=== PATIENT | female | born 1985 | race Caucasian/White ===

== ENCOUNTER 2021-07-12 14:32 | Inpatient (IN) | payer SELFPAY ==
[2021-07-12] MEDS ORDERED: Iopamidol-370 76% 500 ML 1 ML ONE (15:06)
[2021-07-12 15:58] LABS: #Eosinphils 0.5 thou/uL (0.0-0.7); #Lymphocytes 1.7 thou/uL (1.20-3.40); #Monocytes 0.8 thou/uL (0.11-0.59); #Neutrophils 10.9 thou/uL (1.40-6.50); %Basophils 0.3 % (0.0-1.0); %Eosinophils 3.3 % (0.0-10.0); %Lymphocytes 12.1 % (21.0-51.0); %Neutrophils 78.4 % (42.0-75.0); Hemoglobin 13.5 g/dL (12.0-16.0); Mean Corpuscular HGB CONC 34.3 g/dL (32.0-36.0); Mean Corpuscular Hemoglobin 29.3 pg (27.0-31.0); Mean Corpuscular Volume 85.5 fL (78.0-98.0); Mean Platelet Volume 7.2 fL (7.4-10.4); Platelet Count 385 thou/uL (130-400); RBC Distribution Width 12.4 % (11.5-14.5); Red Blood Cell (RBC) Count 4.59 mill/uL (4.20-5.40); White Blood Cell (WBC) Count 13.9 thou/uL (4.8-10.8)
[2021-07-12 16:17] LABS: ALT (SGPT) 12 U/L (8-55); AST (SGOT) 11 U/L (5-34); Albumin 4.3 g/dL (3.5-5.0); Alkaline Phosphatase 106 U/L (40-110); Anion Gap 12 mmol/L (10-20); BUN (Urea Nitrogen) 5 mg/dL (7.0-18.7); Bilirubin, Total 1.1 mg/dL (0.2-1.2); Calc. Creatinine Clearance 0 mL/min (70-130); Calcium 9.3 mg/dL (7.8-10.44); Carbon Dioxide 26 mmol/L (22-29); Chloride 104 mmol/L (98-107); Globulin 3.3 g/dL (2.4-3.5); Glucose 93 mg/dL (70-105); Potassium 3.9 mmol/L (3.5-5.1); Protein, Total 7.6 g/dL (6.0-8.3); Sodium 138 mmol/L (136-145)
[2021-07-12 16:38] LABS: Bilirubin Negative (Negative); Blood, Urine Negative (Negative); Clarity Clear (Clear); Glucose, Urine (Dipstick) Normal (Negative); Ketone, Urine 60 mg/dL (Negative); Leukocyte Negative Leu/uL (Negative); Nitrite Negative (Negative); Protein, Urine (Dipstick) Negative (Neg-Trace); Specific Gravity, Urine 1.017 (1.002-1.036)
[2021-07-12 16:41] LABS: Pregnancy Test - Urine (BHCG) Negative (Negative); Pregu Control Background? CLEAR/WHITE (CLR/WHITE); Pregu Control Bar Appear? YES (CONTROL BAR); Specific Gravity 1.017 (1.002-1.036)
[2021-07-12] MEDS ORDERED: Ondansetron PF 4 MG/2 ML Vial ONE ×2 (17:34→20:40)
[2021-07-12] MEDS ORDERED: Ketorolac Tromethamine 30 MG/ML VIAL ONE ×2 (18:40→23:05)
[2021-07-12] MEDS ORDERED: Bupivacaine 0.25% HCL 30 ML VIAL ONE (19:40)
[2021-07-12] MEDS ORDERED: Lidocaine 1% w/Epinephrine 1:100K 20 ML VIAL ONE (19:40)
[2021-07-12] MEDS ORDERED: Piperacillin/Tazobactam 3.375 GM VIAL ONE (19:55)
[2021-07-12 20:09] LABS: SARS-CoV-2 NAA Rapid Test Not Detected (NotDetected)
[2021-07-12] MEDS ORDERED: Fentanyl 100 MCG/2 ML VIAL ONE ×2 (20:15→22:35)
[2021-07-12] MEDS ORDERED: Dexamethasone 20 MG/5 ML VIAL ONE (20:40)
[2021-07-12] MEDS ORDERED: PROPOFOL 200 MG/20 ML VIAL ONE (20:40)
[2021-07-12] MEDS ORDERED: Succinylcholine 200 MG/10 ml SYRINGE FS ONE (20:40)
[2021-07-12] MEDS ORDERED: Lidocaine 1% PF 5 ML VIAL ONE (20:40)
[2021-07-12] MEDS ORDERED: PHENYLEPHRINE-NS 100 MCG/ML 10 ML SYRINGE ONE (20:40)
[2021-07-12] MEDS ORDERED: Glycopyrrolate 0.2 MG/ML 5 ML SYRINGE ONE (20:40)
[2021-07-12] MEDS ORDERED: Rocuronium Bromide 10 MG/ML (10ML VIAL) ONE (20:40)
[2021-07-12] MEDS ORDERED: Scopolamine 1.5 mg/72 hour Patch ONE (22:32)
[2021-07-12] MEDS ORDERED: Promethazine HCl 25 MG/ML VIAL IVPB PRN (22:34)
[2021-07-12] MEDS ORDERED: Promethazine HCl 25 MG/ML VIAL IM PRN ×2 (22:34→23:03)
[2021-07-12] MEDS ORDERED: Ondansetron HCl/PF 4 MG/2 ML Vial IVP PRN (22:34)
[2021-07-12] MEDS ORDERED: HYDROmorphone 2 MG/ML VIAL SLOW IVP PRN (22:34)
[2021-07-12] MEDS ORDERED: Ketorolac Tromethamine 30 MG/ML VIAL IVP PRN (22:34)
[2021-07-12] MEDS ORDERED: Dextrose 5% in Water 1,000 ML IV PRN (23:03)
[2021-07-12] MEDS ORDERED: hydrALAZINE 20 MG/ML VIAL SLOW IVP PRN (23:03)
[2021-07-12] MEDS ORDERED: Ondansetron PF 4 MG/2 ML Vial IVP PRN (23:03)
[2021-07-12] MEDS ORDERED: Acetaminophen 325 MG TAB PO PRN (23:03)
[2021-07-12] MEDS ORDERED: Dextrose 50% Abboject 50 ML SYRINGE SLOW IVP PRN (23:03)
[2021-07-12] MEDS ORDERED: Morphine 4 MG/ML VIAL SLOW IVP PRN ×2 (23:03→23:30)
[2021-07-12] MEDS ORDERED: Morphine 2 MG/ML VIAL SLOW IVP PRN (23:03)
[2021-07-12] MEDS ORDERED: HYDROcodone/Acetaminophen 10/325 mg Tablet PO PRN ×2 (23:03)
[2021-07-12] MEDS ORDERED: Acetaminophen 650 MG Suppository PR PRN (23:03)
[2021-07-12] MEDS: Ketorolac Tromethamine 30 MG/ML VIAL IVP SCH (23:10)
[2021-07-12] MEDS: D5 1/2 NS w/20 mEq KCL 1,000 ML IV SCH (23:31)
[2021-07-12] MEDS ORDERED: D5 1/2 NS w/20 mEq KCL 1,000 ML ONE (23:31)
[2021-07-12] MEDS ORDERED: Piperacillin/Tazobactam 3.375 GM in Sodium Chloride 0.9% 100 ML IVPB SCH (23:59)
[2021-07-13 00:16] VITALS: BMI 41.1
[2021-07-13] MEDS: Piperacillin/Tazobactam 3.375 GM in Sodium Chloride 0.9% 100 ML IVPB SCH ×4 (00:38→23:59)
[2021-07-13] MEDS: Ketorolac Tromethamine 30 MG/ML VIAL IVP SCH ×4 (05:20→23:59)
[2021-07-13 06:07] LABS: #Lymphocytes 0.7 thou/uL (1.20-3.40); #Monocytes 0.2 thou/uL (0.11-0.59); #Neutrophils 10.5 thou/uL (1.40-6.50); %Eosinophils 0.1 % (0.0-10.0); %Lymphocytes 6.1 % (21.0-51.0); %Monocytes 2.1 % (0.0-10.0); %Neutrophils 91.7 % (42.0-75.0); Hemoglobin 12.7 g/dL (12.0-16.0); Mean Corpuscular HGB CONC 33.9 g/dL (32.0-36.0); Mean Corpuscular Hemoglobin 28.9 pg (27.0-31.0); Mean Corpuscular Volume 85.3 fL (78.0-98.0); Mean Platelet Volume 7.6 fL (7.4-10.4); Platelet Count 378 thou/uL (130-400); RBC Distribution Width 12.3 % (11.5-14.5); Red Blood Cell (RBC) Count 4.39 mill/uL (4.20-5.40); White Blood Cell (WBC) Count 11.5 thou/uL (4.8-10.8)
[2021-07-13 06:22] LABS: Anion Gap 14 mmol/L (10-20); BUN (Urea Nitrogen) 6 mg/dL (7.0-18.7); Calc. Creatinine Clearance 176 mL/min (70-130); Calcium 9.1 mg/dL (7.8-10.44); Carbon Dioxide 22 mmol/L (22-29); Chloride 104 mmol/L (98-107); Glucose 177 mg/dL (70-105); Potassium 4.1 mmol/L (3.5-5.1); Sodium 136 mmol/L (136-145)
[2021-07-13] MEDS: Famotidine/PF 20 mg/2ml Vial SLOW IVP SCH ×2 (08:53→20:41)
[2021-07-13] MEDS: D5 1/2 NS w/20 mEq KCL 1,000 ML IV SCH ×3 (08:58→20:54)
[2021-07-13] MEDS: Famotidine 20 MG TAB PO SCH ×2 (09:23→20:40)
[2021-07-13] MEDS: Enoxaparin Sodium 40 MG/0.4 ML SYRINGE SC SCH (11:26)
[2021-07-14] MEDS: D5 1/2 NS w/20 mEq KCL 1,000 ML IV SCH ×2 (03:53→13:56)
[2021-07-14] MEDS: Ketorolac Tromethamine 30 MG/ML VIAL IVP SCH (05:30)
[2021-07-14 06:26] LABS: #Basophils 0.1 thou/uL (0.0-0.2); #Eosinphils 0.4 thou/uL (0.0-0.7); #Lymphocytes 2.4 thou/uL (1.20-3.40); #Monocytes 0.9 thou/uL (0.11-0.59); #Neutrophils 5.8 thou/uL (1.40-6.50); %Basophils 0.5 % (0.0-1.0); %Eosinophils 4.7 % (0.0-10.0); %Lymphocytes 25.1 % (21.0-51.0); %Monocytes 9.1 % (0.0-10.0); %Neutrophils 60.6 % (42.0-75.0); Hemoglobin 11.5 g/dL (12.0-16.0); Mean Corpuscular Hemoglobin 30.2 pg (27.0-31.0); Mean Corpuscular Volume 86.2 fL (78.0-98.0); Mean Platelet Volume 7.4 fL (7.4-10.4); Platelet Count 347 thou/uL (130-400); RBC Distribution Width 12.4 % (11.5-14.5); Red Blood Cell (RBC) Count 3.83 mill/uL (4.20-5.40); White Blood Cell (WBC) Count 9.5 thou/uL (4.8-10.8)
[2021-07-14 06:49] LABS: Anion Gap 12 mmol/L (10-20); BUN (Urea Nitrogen) 7 mg/dL (7.0-18.7); Calc. Creatinine Clearance 176 mL/min (70-130); Calcium 8.7 mg/dL (7.8-10.44); Carbon Dioxide 23 mmol/L (22-29); Chloride 106 mmol/L (98-107); Glucose 110 mg/dL (70-105); Potassium 3.7 mmol/L (3.5-5.1); Sodium 137 mmol/L (136-145)
[2021-07-14] MEDS: Famotidine/PF 20 mg/2ml Vial SLOW IVP SCH ×2 (08:36→20:22)
[2021-07-14] MEDS: Enoxaparin Sodium 40 MG/0.4 ML SYRINGE SC SCH (08:37)
[2021-07-14] MEDS: Piperacillin/Tazobactam 3.375 GM in Sodium Chloride 0.9% 100 ML IVPB SCH ×2 (08:37→16:25)
[2021-07-14] MEDS: Famotidine 20 MG TAB PO SCH ×2 (08:41→20:22)
[2021-07-14] MEDS ORDERED: Ibuprofen 800 MG TAB PO PRN (10:14)
[2021-07-14] MEDS ORDERED: HYDROcodone/Acetaminophen 5/325 mg Tablet PO PRN ×2 (10:15)
[2021-07-14] MEDS ORDERED: Ketorolac Tromethamine 30 MG/ML VIAL IVP PRN (10:16)
[2021-07-14] MEDS ORDERED: Ibuprofen 200 MG TAB PO PRN (10:58)
[2021-07-15] MEDS: Piperacillin/Tazobactam 3.375 GM in Sodium Chloride 0.9% 100 ML IVPB SCH (00:40)
[2021-07-15] MEDS: D5 1/2 NS w/20 mEq KCL 1,000 ML IV SCH ×2 (01:37→06:10)
[2021-07-15 06:07] LABS: #Eosinphils 0.6 thou/uL (0.0-0.7); #Lymphocytes 2.1 thou/uL (1.20-3.40); #Monocytes 0.7 thou/uL (0.11-0.59); #Neutrophils 4.2 thou/uL (1.40-6.50); %Basophils 0.5 % (0.0-1.0); %Eosinophils 8.3 % (0.0-10.0); %Lymphocytes 27.3 % (21.0-51.0); %Monocytes 8.9 % (0.0-10.0); Mean Corpuscular HGB CONC 31.9 g/dL (32.0-36.0); Mean Corpuscular Hemoglobin 27.7 pg (27.0-31.0); Mean Corpuscular Volume 86.8 fL (78.0-98.0); Mean Platelet Volume 7.4 fL (7.4-10.4); Platelet Count 364 thou/uL (130-400); RBC Distribution Width 12.4 % (11.5-14.5); Red Blood Cell (RBC) Count 3.98 mill/uL (4.20-5.40); White Blood Cell (WBC) Count 7.6 thou/uL (4.8-10.8)
[2021-07-15] MEDS: Famotidine 20 MG TAB PO SCH (08:35)
[2021-07-15] MEDS: Famotidine/PF 20 mg/2ml Vial SLOW IVP SCH (08:36)
[2021-07-15] MEDS: Enoxaparin Sodium 40 MG/0.4 ML SYRINGE SC SCH (08:36)
[2021-07-15] MEDS ORDERED: traMADol HCl 50 MG TAB PO PRN (08:50)
[2021-07-15 08:54] VITALS: BP 134/89; TEMP 98.7
[2021-07-15] MEDS ORDERED: metroNIDAZOLE 500 MG TAB PO SCH (09:00)
[2021-07-16] MEDS ORDERED: FLU VACC QS2021-22(6MOS UP)/PF 60 MCG/0.5 ML SYRINGE IM ONE (09:00)
== END 2021-07-15 11:21 | disposition home or self-care (01) | DRG 357 ==
LOC: ERS 14:32 → SDC/OP 18:55 → SJJU 23:03
PROVIDERS: ADMIT Surgery; ATTEND Surgery
PROC: 0W9J4ZZ Drainage of Pelvic Cavity, Percutaneous Endoscopic Approach (ICD-10-PCS; principal; 2021-07-12)
DX: K35.33 Acute appendicitis with perforation, localized peritonitis, and gangrene, with abscess (principal); Z68.41 Body mass index [BMI] 40.0-44.9, adult; Z20.822 Contact with and (suspected) exposure to COVID-19; E66.01 Morbid (severe) obesity due to excess calories; Z90.49 Acquired absence of other specified parts of digestive tract; Z88.8 Allergy status to other drugs, medicaments and biological substances
CPT/HCPCS: 36415; 74177; 80048; 80053; 81003; 81025; 85025; 87324; 87449; 96361; 96365; 96375; J1100; J1885; J2270; J2405; J2543; J2704; J3010; J3480; J3490; Q9967; S0020; S0028; U0002

== ENCOUNTER 2022-06-21 18:17 | Inpatient (IN) | payer OTHER, SELFPAY ==
[~2022-06-21 18:17] MED LIST: Iopamidol-370 76% 500 ML 1 ML ONE
[2022-06-21 19:04] LABS: #Eosinphils 0.5 thou/uL (0.0-0.7); #Lymphocytes 1.1 thou/uL (1.20-3.40); #Monocytes 0.6 thou/uL (0.11-0.59); #Neutrophils 9.5 thou/uL (1.40-6.50); %Basophils 0.1 % (0.0-1.0); %Eosinophils 4.3 % (0.0-10.0); %Lymphocytes 9.3 % (21.0-51.0); %Monocytes 5.4 % (0.0-10.0); Hemoglobin 13.3 g/dL (12.0-16.0); Mean Corpuscular HGB CONC 34.4 g/dL (32.0-36.0); Mean Corpuscular Volume 84.2 fL (78.0-98.0); Mean Platelet Volume 6.8 fL (7.4-10.4); Platelet Count 385 thou/uL (130-400); RBC Distribution Width 12.3 % (11.5-14.5); Red Blood Cell (RBC) Count 4.59 mill/uL (4.20-5.40); White Blood Cell (WBC) Count 11.7 thou/uL (4.8-10.8)
[2022-06-21 19:27] LABS: ALT (SGPT) 19 U/L (8-55); AST (SGOT) 14 U/L (5-34); Albumin 4.6 g/dL (3.5-5.0); Alkaline Phosphatase 67 U/L (40-110); Anion Gap 15 mmol/L (10-20); BUN (Urea Nitrogen) 12 mg/dL (7.0-18.7); Bilirubin, Total 0.5 mg/dL (0.2-1.2); CK (CPK) 75 U/L (29-168); Calc. Creatinine Clearance 0 mL/min (70-130); Calcium 9.3 mg/dL (7.8-10.44); Carbon Dioxide 23 mmol/L (22-29); Chloride 105 mmol/L (98-107); Estimated GFR 91; Globulin 3.2 g/dL (2.4-3.5); Glucose 117 mg/dL (70-105); Potassium 4.1 mmol/L (3.5-5.1); Protein, Total 7.8 g/dL (6.0-8.3); Sodium 139 mmol/L (136-145)
[2022-06-21] MEDS ORDERED: Ketorolac Tromethamine 30 MG/ML VIAL ONE (20:47)
[2022-06-21 21:21] LABS: BHCG - Serum Negative (NEGATIVE); Pregs Control Background? CLEAR/WHITE (CLR/WHITE); Pregs Control Bar Appear? YES (CONTROL BAR)
[2022-06-21] MEDS ORDERED: Ondansetron PF 4 MG/2 ML Vial ONE (21:44)
[2022-06-21 22:13] LABS: SARS-CoV-2 NAA Rapid Test Not Detected (NotDetected)
[2022-06-21] MEDS ORDERED: Piperacillin/Tazobactam 3.375 GM VIAL ONE (22:57)
[2022-06-21] MEDS ORDERED: Fentanyl 100 MCG/2 ML VIAL ONE (22:58)
[2022-06-21 23:41] LABS: INR-International Normal Ratio 0.9; Prothrombin Time 12.7 sec (12.0-14.7)
[2022-06-21 23:42] LABS: PTT 32.7 sec (22.9-36.1)
[2022-06-22] MEDS ORDERED: Ondansetron PF 4 MG/2 ML Vial IVP PRN (00:30)
[2022-06-22] MEDS ORDERED: Ondansetron ODT 4 MG TAB SL PRN (00:30)
[2022-06-22] MEDS: Fentanyl 100 MCG/2 ML VIAL SLOW IVP PRN ×3 (00:56→06:41)
[2022-06-22] MEDS: D5 1/2 NS w/20 mEq KCL 1,000 ML IV SCH ×2 (00:58→13:13)
[2022-06-22 02:51] VITALS: BMI 46.3
[2022-06-22] MEDS ORDERED: Piperacillin/Tazobactam 3.375 GM in Sodium Chloride 0.9% 100 ML IVPB SCH ×2 (05:00→12:00)
[2022-06-22] MEDS ORDERED: Bupivacaine 0.25% HCL 30 ML VIAL ONE (06:54)
[2022-06-22] MEDS ORDERED: EPINEPHrine 1 MG/ML AMP ONE (06:54)
[2022-06-22] MEDS ORDERED: Midazolam HCl 2 mg/2 ml Vial ONE (07:17)
[2022-06-22] MEDS ORDERED: fentaNYL Citrate/PF 100 MCG/2 ML SYRINGE ONE ×2 (07:18→07:54)
[2022-06-22] MEDS ORDERED: Promethazine HCl 25 MG/ML VIAL ONE (07:54)
[2022-06-22] MEDS ORDERED: Scopolamine 1.5 mg/72 hour Patch ONE (08:01)
[2022-06-22] MEDS ORDERED: Propofol 1,000 MG/100 ML VIAL IV ONE ×3 (08:14→09:23)
[2022-06-22] MEDS ORDERED: Dexamethasone 20 MG/5 ML VIAL ONE (08:16)
[2022-06-22] MEDS ORDERED: PROPOFOL 200 MG/20 ML VIAL ONE (08:16)
[2022-06-22] MEDS ORDERED: Lidocaine 1% MPF 2 ML VIAL ONE (08:16)
[2022-06-22] MEDS ORDERED: Ketorolac Tromethamine 30 MG/ML VIAL ONE (08:16)
[2022-06-22] MEDS ORDERED: Rocuronium Bromide 10 MG/ML (10ML VIAL) ONE (08:16)
[2022-06-22] MEDS ORDERED: Ondansetron PF 4 MG/2 ML Vial ONE (08:16)
[2022-06-22] MEDS ORDERED: Morphine 2 MG/ML VIAL SLOW IVP PRN (10:46)
[2022-06-22] MEDS ORDERED: HYDROcodone/Acetaminophen 5/325 mg Tablet PO PRN (10:46)
[2022-06-22] MEDS ORDERED: Fentanyl 100 MCG/2 ML VIAL ONE (10:55)
[2022-06-22] MEDS: HYDROcodone/Acetaminophen 5/325 mg Tablet PO PRN ×2 (13:12→18:55)
[2022-06-22] MEDS: Piperacillin/Tazobactam 3.375 GM in Sodium Chloride 0.9% 100 ML IVPB SCH ×2 (13:20→20:47)
[2022-06-22] MEDS ORDERED: Acetaminophen 325 MG TAB PO PRN ×2 (19:57)
[2022-06-22] MEDS: Ondansetron PF 4 MG/2 ML Vial IVP PRN (20:55)
[2022-06-23] MEDS: HYDROcodone/Acetaminophen 5/325 mg Tablet PO PRN ×3 (01:26→11:32)
[2022-06-23] MEDS: Piperacillin/Tazobactam 3.375 GM in Sodium Chloride 0.9% 100 ML IVPB SCH (04:26)
[2022-06-23] MEDS: Ondansetron PF 4 MG/2 ML Vial IVP PRN (08:17)
[2022-06-23] MEDS ORDERED: Saccharomyces boulardii 250 MG CAP PO SCH (09:00)
[2022-06-23 09:22] VITALS: BP 144/90; TEMP 97.1
== END 2022-06-23 12:29 | disposition home or self-care (01) | DRG 343 ==
LOC: ERS 18:17 → SURG A 23:05
PROVIDERS: ADMIT Surgery; ATTEND Surgery
PROC: 0DTJ4ZZ Resection of Appendix, Percutaneous Endoscopic Approach (ICD-10-PCS; principal; 2022-06-22)
PROC: 0WQF4ZZ Repair Abdominal Wall, Percutaneous Endoscopic Approach (ICD-10-PCS; 2022-06-22)
DX: K35.80 Unspecified acute appendicitis (principal); Z20.822 Contact with and (suspected) exposure to COVID-19; K42.9 Umbilical hernia without obstruction or gangrene; Z88.8 Allergy status to other drugs, medicaments and biological substances; Z79.899 Other long term (current) drug therapy; K64.4 Residual hemorrhoidal skin tags; Z90.49 Acquired absence of other specified parts of digestive tract
CPT/HCPCS: 36415; 71045; 74177; 80053; 82550; 83690; 84484; 84703; 85025; 85379; 85610; 85730; 88304; 93005; 96374; 96375; A4649; J0171; J1100; J1885; J2250; J2270; J2405; J2543; J2550; J2704; J3010; J3480; J3490; Q9967; S0020; U0002